=== PATIENT | female | born 1985 | race Caucasian/White ===

== ENCOUNTER → 2018-09-08 | Outpatient (CLI) | payer BC ==
--- NOTE | 2018-09-08 23:27 | RAD ---
Examination: 2 views of the left hip HISTORY: History of left hip pain for 2 years COMPARISON: None available. Findings/ impression: The left femoral head is within the acetabulum. There is no acute fracture or dislocation identified. There is minimal questionable bony overhang of the superior acetabular region. Correlate for impingement. MRI may be useful. Electronically signed by: Alexys Enamorado MD (09/08/2018 4:43 PM) [id number]
== END | disposition home or self-care (01) ==
LOC: RAD 16:06
PROVIDERS: ATTEND Nurse Practitioner
DX: M25.552 Pain in left hip (principal)
CPT/HCPCS: 73502